=== PATIENT | male | born 1945 | race Caucasian/White ===

== ENCOUNTER 2020-08-13 11:35 | Emergency (ER) | payer OTHER, MEDICARE ==
[~2020-08-13 11:35] MED LIST: ASPIRIN81 MG PO; BACTRIM DS TAB1 EACH PO; CENTRUM SILVER1 EAC1 PO; CLEOCIN HCL300 MG PO; CORDARONE 200M200 MG PO; DAILY MULTIPLE1 EAC1 PO; IRON325 M1 PO; NORCO 5-325 TA1 EACH PO; NORCO 7.5-3251 EACH PO; VITAMIN C 500500 MG PO; [UNRECOGNIZED DRUG - OTHER] IV
[2020-08-13 12:31] LABS: HEMOGLOBIN 9.9 gm/dl (14.0-17.5); RED BLOOD COUNT 3.66 M/UL (4.20-5.50); WHITE BLOOD COUNT 9.7 K/UL (4.5-11.0)
[2020-08-13 12:54] LABS: BUN/CREATININE RATIO 29 (0-10)
[2020-08-16 11:15] LABS: ADENOVIRUS F 40/41 Not Detected (Not Detected); ASTROVIRUS Not Detected (Not Detected); C DIFFICILE TOXIN A/B Not Detected (Not Detected); CAMPYLOBACTER Not Detected (Not Detected); CRYPTOSPORIDIUM Not Detected (Not Detected); CYCLOSPORA CAYETANENSIS Not Detected (Not Detected); ENTAMOEBA HISTOLYTICA Not Detected (Not Detected); ENTEROAGGREGATIVE E COLI Not Detected (Not Detected); ENTEROPATHOGENIC E COLI Not Detected (Not Detected); ENTEROTOXIGENIC E COLI Not Detected (Not Detected); GIARDIA LAMBLIA Not Detected (Not Detected); NOROVIRUS GI/GII Not Detected (Not Detected); PLESIOMONAS SHIGELLOIDES Not Detected (Not Detected); ROTAVIRUS A Not Detected (Not Detected); SALMONELLA Not Detected (Not Detected); SAPOVIRUS Not Detected (Not Detected); SHIGA-TOXIN-PRODUCING E COLI Not Detected (Not Detected); SHIGELLA/ENTEROINVASIVE E COLI Not Detected (Not Detected); VIBRIO Not Detected (Not Detected); VIBRIO CHOLERAE Not Detected (Not Detected); YERSINIA ENTEROCOLITICA Not Detected (Not Detected)
== END 2020-08-13 20:00 | disposition short-term general hospital (02) ==
LOC: ER1 11:35
PROVIDERS: Physician Assistant Medical
DX: U07.1 COVID-19 (principal); I95.1 Orthostatic hypotension; F17.210 Nicotine dependence, cigarettes, uncomplicated; Z85.038 Personal history of other malignant neoplasm of large intestine; Z88.0 Allergy status to penicillin; Z93.3 Colostomy status
CPT/HCPCS: 0240U; 51702; 80053; 81001; 82550; 82553; 83605; 83690; 83874; 84484; 85025; 87507; 93005; 99285; Q9967

== ENCOUNTER 2020-09-29 10:35 | Emergency (ER) | payer OTHER, MEDICARE ==
[2020-09-29 11:53] LABS: HEMOGLOBIN 8.2 gm/dl (14.0-17.5); RED BLOOD COUNT 3.63 M/UL (4.20-5.50)
[2020-09-29 12:28] LABS: BUN/CREATININE RATIO 17 (0-10)
[2020-09-29 12:38] LABS: WHITE BLOOD COUNT 32.4 K/UL (4.5-11.0)
[2020-09-29] MEDS ORDERED: ZOFRAN ODT 4 MG4 MG PO (21:27)
== END 2020-09-29 22:10 | disposition home or self-care (01) ==
LOC: ER1 10:35
PROVIDERS: Physician Assistant
DX: C22.9 Malignant neoplasm of liver, not specified as primary or secondary (principal); C78.89 Secondary malignant neoplasm of other digestive organs; R06.02 Shortness of breath; Z20.822 Contact with and (suspected) exposure to COVID-19; Z86.16 Personal history of COVID-19; Z88.0 Allergy status to penicillin; F17.210 Nicotine dependence, cigarettes, uncomplicated; D72.829 Elevated white blood cell count, unspecified; D64.9 Anemia, unspecified
CPT/HCPCS: 71045; 80053; 81001; 82272; 82550; 82553; 83605; 83874; 83880; 84484; 85007; 85027; 85379; 87040; 93005; 96374; 96375; 96376; 99285; J0696; J2270; J2405; J7030; Q9967; U0002

== ENCOUNTER 2020-10-02 07:51 | Inpatient (IN) | payer MEDICARE ==
[~2020-10-02] VITALS: Ht 193 cm; Wt 97.1 kg
[~2020-10-02 07:51] MED LIST changes: +ZOFRAN ODT 4 MG4 MG PO
[2020-10-02 09:20] LABS: HEMOGLOBIN 8.6 gm/dl (14.0-17.5); RED BLOOD COUNT 3.92 M/UL (4.20-5.50)
[2020-10-02 09:45] LABS: BUN/CREATININE RATIO 16 (0-10)
[2020-10-02] MEDS ORDERED: IRON325 M1 PO (12:07)
[2020-10-02] MEDS ORDERED: ROBAXIN 750 MG750 MG PO (12:07)
[2020-10-02] MEDS ORDERED: PHOS-NAK PACKET1 EA PO (12:08)
[2020-10-02] MEDS ORDERED: FLOMAX 0.4 MG0.4 MG PO (12:08)
[2020-10-02] MEDS ORDERED: SODIUM BICARBO650 M1 PO (12:08)
[2020-10-02] MEDS ORDERED: DESYREL 50 MG T50 MG PO (12:09)
[2020-10-02] MEDS ORDERED: VITAMIN D325 MCG PO (13:03)
[2020-10-02] MEDS ORDERED: DAILY VITE1 EACH PO (13:04)
[2020-10-02] MEDS ORDERED: CALCIUM CARBON600 MG PO (13:04)
[2020-10-02 17:54] LABS: ADENOVIRUS F 40/41 Not Detected (Negative); ASTROVIRUS Not Detected (Negative); CAMPYLOBACTER Not Detected (Negative); CLOSTRIDIUM DIFFICILE TOX A/B Not Detected (Negative); CRYPTOSPORIDIUM Not Detected (Negative); E.COLI 0157 Not Detected (Negative); ENTAMOEBA HISTOLYTICA Not Detected (Negative); ENTEROAGGREGATIVE E.COLI (EAEC Not Detected (Negative); ENTEROPATHOGENIC E.COLI (EPEC) Not Detected (Negative); ENTEROTOXIGENIC E.COLI (ETEC) Not Detected (Negative); GIARDIA LAMBLIA Not Detected (Negative); NOROVIRUS GI/GII Not Detected (Negative); PLESIOMONAS SHIGELLOIDES Not Detected (Negative); ROTOVIRUS A Not Detected (Negative); SALMONELLA Not Detected (Negative); SAPOVIRUS Not Detected (Negative); SHIG/ENTEROINVAS.ECOLI (EIEC) Not Detected (Negative); SHIGA-LIK TOX.PRO.E.COLI (STEC Not Detected (Negative); VIBRIO Not Detected (Negative); VIBRIO CHOLERAE Not Detected (Negative); YERSINIA ENTEROCOLITICA Not Detected (Negative)
[2020-10-03 03:10] LABS: HEMOGLOBIN 7.7 gm/dl (14.0-17.5); WHITE BLOOD COUNT 7.5 K/UL (4.5-11.0)
[2020-10-03 03:15] LABS: RED BLOOD COUNT 3.39 M/UL (4.20-5.50)
[2020-10-03 05:45] LABS: BUN/CREATININE RATIO 16 (0-10)
[2020-10-04 04:21] LABS: BUN/CREATININE RATIO 15 (0-10)
[2020-10-04 04:22] LABS: HEMOGLOBIN 7.4 gm/dl (14.0-17.5); RED BLOOD COUNT 3.39 M/UL (4.20-5.50); WHITE BLOOD COUNT 7.7 K/UL (4.5-11.0)
[2020-10-05 05:27] LABS: RED BLOOD COUNT 3.48 M/UL (4.20-5.50); WHITE BLOOD COUNT 8.7 K/UL (4.5-11.0)
[2020-10-05 05:44] LABS: BUN/CREATININE RATIO 9 (0-10)
[2020-10-06] MEDS ORDERED: OXYCODONE HCL10 MG PO (11:29)
[2020-10-06] MEDS ORDERED: ZOFRAN ODT 4 MG4 MG PO (11:29)
== END 2020-10-06 13:54 | disposition home or self-care (01) | DRG 376 ==
LOC: ER1 07:51 → M/S 10:51 → CDU 10:51 → M/S 13:39
PROVIDERS: Family Medicine; Internal Medicine Gastroenterology; Physician Assistant; Physician Assistant Medical; ADMIT Internal Medicine Infectious Disease
PROC: 0D738ZZ Dilation of Lower Esophagus, Via Natural or Artificial Opening Endoscopic (ICD-10-PCS; principal; 2020-10-05 10:48)
PROC: 0D728ZZ Dilation of Middle Esophagus, Via Natural or Artificial Opening Endoscopic (ICD-10-PCS; principal; 2020-10-05 10:48)
PROC: 0DB58ZX Excision of Esophagus, Via Natural or Artificial Opening Endoscopic, Diagnostic (ICD-10-PCS; principal; 2020-10-05 10:48)
PROC: 0DB38ZX Excision of Lower Esophagus, Via Natural or Artificial Opening Endoscopic, Diagnostic (ICD-10-PCS; principal; 2020-10-05 10:48)
DX: C15.5 Malignant neoplasm of lower third of esophagus (principal); E86.0 Dehydration; Z20.822 Contact with and (suspected) exposure to COVID-19; D50.9 Iron deficiency anemia, unspecified; Z66 Do not resuscitate; I25.10 Atherosclerotic heart disease of native coronary artery without angina pectoris; Z53.8 Procedure and treatment not carried out for other reasons; Z90.49 Acquired absence of other specified parts of digestive tract; Z85.038 Personal history of other malignant neoplasm of large intestine; Z88.0 Allergy status to penicillin; Z83.3 Family history of diabetes mellitus; Z90.89 Acquired absence of other organs; Z87.891 Personal history of nicotine dependence; Z80.3 Family history of malignant neoplasm of breast
CPT/HCPCS: ECHO; 36415; 70450; 71045; 76000; 80048; 80053; 82550; 82553; 82728; 83540; 83550; 83735; 83874; 84484; 85025; 85027; 87507; 93005; 93306; 96374; 96375; 96376; 99285; C1874; C9113; G0378; J1756; J2270; J2704; J7030; J7040; U0002